=== PATIENT | female | born 1970 | race Two or more races ===

== ENCOUNTER 2022-12-20 17:57 | Inpatient (IN) | payer OTHER ==
[2022-12-20 19:52] VITALS: BMI 17.7
[2022-12-20] MEDS ORDERED: IBUPROFEN 400 MG TABLET (FP) PO PRN (21:24)
[2022-12-20] MEDS ORDERED: ACETAMINOPHEN 325 MG TABLET (FP) PO PRN (21:24)
[2022-12-20] MEDS ORDERED: BENZOCAINE/MENTHOL (CHLORASEPTIC ) LOZENGE MM PRN (21:24)
[2022-12-20] MEDS ORDERED: MAG HYDROX/AL HYDROX/SIMETH 30 ML UNIT-DOSE CUP PO PRN (21:24)
[2022-12-20] MEDS ORDERED: BENZONATATE 200 MG CAPSULE PO PRN (21:24)
[2022-12-20] MEDS ORDERED: methaDONE HCL 10 MG TABLET (FOR DETOX USE ONLY) PO ONE (21:24)
[2022-12-20] MEDS ORDERED: POLYETHYLENE GLYCOL (HEALTHYLAX) 3350 17 GM PACKET PO PRN (21:24)
[2022-12-20] MEDS ORDERED: NALOXONE HCL (KLOXXADO) 8 MG SPRAY NS PRN (21:24)
[2022-12-20] MEDS ORDERED: NALOXONE HCL 0.4 MG/ML VIAL IM PRN (21:24)
[2022-12-20] MEDS ORDERED: BISMUTH SUBSALICYLATE 524 MG/30 ML PO PRN (21:24)
[2022-12-20] MEDS ORDERED: IBUPROFEN 600 MG TABLET (FP) PO PRN (21:24)
[2022-12-20] MEDS ORDERED: NICOTINE POLACRILEX 2 MG GUM BUC PRN (21:24)
[2022-12-20] MEDS ORDERED: cloNIDine HCL 0.1 MG TABLET PO PRN (21:24)
[2022-12-20] MEDS ORDERED: MAGNESIUM HYDROX 2400MG/30ML ORAL SUSPENSION 30 ML CUP PO PRN (21:24)
[2022-12-20] MEDS ORDERED: DICYCLOMINE HCL 10 MG CAPSULE PO PRN (21:24)
[2022-12-20] MEDS ORDERED: guaiFENesin 600 MG TABLET.ER (FP) PO PRN (21:24)
[2022-12-20] MEDS ORDERED: LOPERAMIDE HCL 2 MG CAPSULE PO PRN (21:24)
[2022-12-20] MEDS ORDERED: methaDONE HCL 10 MG TABLET (FOR DETOX USE ONLY) ONE (21:58)
[2022-12-20] MEDS ORDERED: THIAMINE HCL 100 MG TABLET (FP) PO SCH (22:00)
[2022-12-20] MEDS: diazePAM 5 MG TABLET PO PRN (23:25)
[2022-12-21] MEDS: diazePAM 5 MG TABLET PO PRN ×2 (09:11→16:52)
[2022-12-21 09:24] VITALS: RESP 18
[2022-12-21] MEDS ORDERED: BACITRACIN 0.9 GM PACKET TP SCH (10:00)
[2022-12-21] MEDS ORDERED: NICOTINE 14 MG/24 HOURS TOPICAL PATCH TD SCH (10:00)
[2022-12-21] MEDS ORDERED: PRENATAL VITAMINS W/ FOLIC ACID TABLET (FP) PO SCH (10:00)
[2022-12-21] MEDS ORDERED: ALBUTEROL SO4 HFA INHALER IH PRN (10:07)
[2022-12-21 10:09] LABS: HEMATOCRIT 32.8 % (32.4-45.2); HEMOGLOBIN 10.8 GM/dL (10.7-15.3); MCHC 32.8 g/dl (32.0-36.0); MEAN CELL VOLUME 76.2 fl (80-96); PLATELET COUNT 180 10^3/uL (134-434); RBC 4.31 M/mm3 (3.60-5.2); RDW 17.8 % (11.6-15.6); WHITE BLOOD COUNT 2.9 K/mm3 (4.0-10.0)
[2022-12-21 13:55] LABS: ALBUMIN 2.7 g/dl (3.4-5.0); BLOOD UREA NITROGEN 15.5 mg/dL (7-18); CALCIUM 8.8 mg/dL (8.5-10.1)
[2022-12-21 13:57] LABS: CREATININE 0.9 mg/dL (0.55-1.3)
[2022-12-21 13:59] LABS: BILIRUBIN,TOTAL 0.2 mg/dL (0.2-1)
[2022-12-21 14:00] LABS: TOT PROT 6.4 g/dl (6.4-8.2)
[2022-12-21] MEDS ORDERED: POTASSIUM CHLORIDE ORAL LIQUID 20 MEQ/15 ML PO ONE (16:18)
[2022-12-21 19:00] VITALS: BP 110/69; PULSE 81; TEMP 97.1
[2022-12-21] MEDS ORDERED: levETIRAcetam 500 MG TABLET (FP) PO SCH (22:00)
[2022-12-21] MEDS ORDERED: QUEtiapine FUMARATE 100 MG TABLET (FP) PO SCH (22:00)
[2022-12-22] MEDS ORDERED: methaDONE HCL 10 MG TABLET (FOR DETOX USE ONLY) PO ONE (10:00)
[2022-12-24] MEDS ORDERED: methaDONE HCL 10 MG TABLET (FOR DETOX USE ONLY) PO ONE (10:00)
== END 2022-12-21 20:55 | disposition short-term general hospital (02) | DRG 773 ==
LOC: YASAS 17:57 → Y3N 22:14
PROVIDERS: ADMIT Allergy & Immunology; ATTEND Surgery
PROC: HZ2ZZZZ Detoxification Services for Substance Abuse Treatment (ICD-10-PCS; principal; 2022-12-20)
DX: F11.23 Opioid dependence with withdrawal (principal); F14.20 Cocaine dependence, uncomplicated; F12.20 Cannabis dependence, uncomplicated; F25.9 Schizoaffective disorder, unspecified; B20 Human immunodeficiency virus [HIV] disease; Z79.899 Other long term (current) drug therapy; G40.909 Epilepsy, unspecified, not intractable, without status epilepticus; R45.851 Suicidal ideations; Z62.810 Personal history of physical and sexual abuse in childhood; I25.2 Old myocardial infarction; I69.851 Hemiplegia and hemiparesis following other cerebrovascular disease affecting right dominant side; Z59.00 Homelessness unspecified; Z88.8 Allergy status to other drugs, medicaments and biological substances
CPT/HCPCS: 36415; 80053; 80177; 81025; 82962; 85027; 86593; 86780; 87811; 93005; 93010; C9803-CS; U0003; U0005

== ENCOUNTER 2022-12-21 11:08 | Emergency (ER) | payer OTHER ==
[2022-12-21 11:24] VITALS: BP 111/77; RESP 20; TEMP 97.7; BMI 18.3
[2022-12-21] MEDS ORDERED: PENICILLIN G BENZATHINE 2,400,000 UNIT/4 ML PFS IM ONE (12:08)
[2022-12-21] MEDS ORDERED: SODIUM CHLORIDE 0.9% 500 ML INFUS.BAG IV ONE (12:14)
[2022-12-21] MEDS ORDERED: ONDANSETRON 4 MG/2 ML VIAL IVPB ONE (12:14)
[2022-12-21] MEDS ORDERED: levETIRAcetam 500 MG/5 ML INJECTION VIAL IVPB ONE ×2 (12:20→12:21)
[2022-12-21] MEDS ORDERED: ONDANSETRON 4 MG/2 ML VIAL ONE (12:21)
[2022-12-21] MEDS ORDERED: PENICILLIN G BENZATHINE 2,400,000 UNIT/4 ML PFS ONE (12:22)
[2022-12-21 13:39] LABS: PH,URINE 7.5 (5.0-8.0); URINE APPEARANCE CLEAR; URINE BILIRUBIN NEGATIVE (NEGATIVE); URINE COLOR YELLOW; URINE GLUCOSE (UA) NEGATIVE (NEGATIVE); URINE KETONE NEGATIVE (NEGATIVE); URINE LEUK ESTERASE TRACE (NEGATIVE); URINE NITRITE NEGATIVE (NEGATIVE); URINE PROTEIN NEGATIVE (NEGATIVE); URINE UROBILINOGEN 0.2 mg/dL (0.2-1.0)
[2022-12-21 13:40] LABS: HCG,QUALITATIVE URINE Negative; URINE RBC 1.3 /uL (0-23.9)
[2022-12-21 13:41] LABS: EPI CELLS 5.6 /uL (0-25.1); HYALINE CASTS 0.12 /uL (0-3.1); URINE BACTERIA 47.6 /uL (0-1359); URINE WBC 8.2 /uL (0-25.8)
[2022-12-21 16:21] VITALS: PULSE 80
== END 2022-12-21 16:21 | disposition home or self-care (01) ==
LOC: JER 11:08
PROC: 3E033GC Introduction of Other Therapeutic Substance into Peripheral Vein, Percutaneous Approach (ICD-10-PCS; principal; 2022-12-21)
PROC: 3E033GC Introduction of Other Therapeutic Substance into Peripheral Vein, Percutaneous Approach (ICD-10-PCS; 2022-12-21)
PROC: 3E02329 Introduction of Other Anti-infective into Muscle, Percutaneous Approach (ICD-10-PCS; 2022-12-21)
DX: G40.909 Epilepsy, unspecified, not intractable, without status epilepticus (principal)
CPT/HCPCS: 70450-TC; 71045-TC-FY; 72125-TC; 81003; 84703; 87086; 93005; 93010; 99285-25